=== PATIENT | male | born 1935 ===

== ENCOUNTER 2022-12-10 20:07 | Emergency (ER) | payer OTHER, SELFPAY ==
--- NOTE | 2022-12-10 20:17 | ED_ITS ---
HPI - CPR General Chief Complaint: Cardiac Arrest/CPR Stated Complaint: cardiac arrest Time Seen by Provider: 12/10/22 20:15 Source: EMS Mode of arrival: EMS Limitations: other History of Present Illness HPI narrative: Patient status post pacemaker detail medical history not available at this time was going for dinner in the restroom while walking with walker patient said is not feeling good and slumped down CPR started within few minutes EMS arrived initial rhythm was v fib patient intubated immediately CPR started received 10 shocks 5 doses of epi without any rhythm back on arrival patient had PEA on monitor worker pupils fixed and dilated intubated Sukh was used for CPR no signs of injury CPR continued for about 40 minutes without any success prior to arrival received amiodarone 300 mg and magnesium sulfate Related Data Allergies Allergy/AdvReac Type Severity Reaction Status Date / Time No Known Allergies Allergy Verified 12/10/22 20:16 Review of Systems Review of Systems: Yes Unobtainable due to mental condition PMFSH Past Medical History Medical History (Updated 12/10/22 @ 20:45 by Armando Stevenson MD) Pacemaker Coronary artery disease Surgical History (Updated 12/10/22 @ 20:45 by Armando Stevenson MD) Hx of CABG Social History Social History Advance Directives: No Advance Directives Information Provided: No Physical Exam Vital Signs: Vital Signs: BMI result Body Mass Index 24.0 Appearance: Well-built no signs of trauma Eyes: Pupils fixed and dilated ENT: ET tube in place with blood in the tube 7.5m lip at 22 cm Neck: Normal inspection. Neck supple. CVS: CPR in progress with central pulses palpable Respiratory: Equal air entry bilateral, with Ambu Abdomen: Soft Skin: Skin warm and dry. Normal skin color. Extremities: No lower extremity edema. Neuro: Comatosed Medical Decision Making Medical Decision Making MDM Narrative: Bedside echo without any cardiac activity 40 minutes of CPR in field with multiple doses of shock also received amiodarone and magnesium sulfate with no response patient pronounced at 20:14 Spoke to patient's daughter Nara Bird lives in [place] phone number [phone] patient has history of coronary disease status post CABG and pacemaker Patient's son's kevin who lives in [place] #[phone] Case discussed with outside medical sales representative Kristi Shepard case [id number] >>>not a outside medical sales representative case Discharge Plan Discharge Clinical Impression: Cardiac arrest Patient Disposition: Interventions: Organ Donor Nursing Doc/Post Mortem care Last Done: 12/10/22 22:35 Discharge Date/Time: 12/10/22 22:35 Date/Time: 12/10/22 20:14
[2022-12-10 20:25] VITALS: BMI 24.0
--- NOTE | 2022-12-10 20:34 | PC.NURSE ---
unable to obtain family information via chart. EMS attempting to find info at this time
--- NOTE | 2022-12-10 20:35 | PC.NURSE ---
NEDs called, declined patient
--- NOTE | 2022-12-10 20:37 | PC.NURSE ---
daughter Nara Bird,
--- NOTE | 2022-12-10 21:09 | MHC.EDTECH ---
Called [facility] @ 21:[address] Fitch. Patient TOD was 20:14
[2022-12-12 07:31] LABS: Glucose, Whole Blood 75 mg/dL (60-115)
== END 2022-12-10 22:35 | disposition expired ==
PROVIDERS: Emergency Provider Internal Medicine
DX: I46.9 Cardiac arrest, cause unspecified (principal); Z95.0 Presence of cardiac pacemaker; Z95.1 Presence of aortocoronary bypass graft
CPT/HCPCS: 82947; 99283; J0171